=== PATIENT | male | born 1950 | race Caucasian/White ===

== ENCOUNTER 2016-02-27 12:53 | Emergency (ER) | payer OTHER ==
[~2016-02-27] VITALS: Ht 170.2 cm; Wt 66.0 kg
[~2016-02-27 12:53] MED LIST: AMLO5TAB96 PO; COLY4000S PO; CRANCAP5 OR; DOCU100T9 PO; DOXY100T OR; TERA2CAP3 PO
[2016-02-27 13:17] VITALS: BP 163/93; PULSE 88; RESP 18; TEMP 98.1; O2SAT 98
[2016-02-27] MEDS ORDERED: AMLO5TAB2 PO (13:47)
[2016-02-27] MEDS ORDERED: MELO-1 PO (13:47)
[2016-02-27] MEDS ORDERED: TERA2CAP3 PO (13:47)
[2016-02-27 13:55] VITALS: BP 140/70; PULSE 76; RESP 18; O2SAT 98
--- NOTE | 2016-02-27 13:59 | PD ---
HPI Chief Complaint: Hypertension Time Seen by Provider: 13:43 Travel History International Travel<30 days: No Contact w/Intl Traveler<30days: No Traveled to known affect area: No History of Present Illness HPI This 65-year-old male says he had an episode at home where he felt confused. He thinks it lasted for about half an hour. She had some tingling in his arms lasted for about a minute. He said his palms were sweaty. He went to [facility] and checked his blood pressure is elevated at 177/92. He is on Norvasc for hypertension. He has no history of heart disease or stroke. He is on medication for enlarged prostate. He smokes over a pack a day he does not complain of headaches. He has been coughing a lot recently PFSH Past Medical History Arthritis: Yes Hypertension: Yes Reproductive: Yes (ENLARGED PROSTATE) Influenza Vaccination: No Past Surgical History Surgical History: No Previous Surgery Social History Alcohol Use: No Tobacco Use: Yes (2 ppd) Substance Use: No Allergies-Medications (Allergen,Severity, Reaction): Coded Allergies: Effexor (Verified Allergy, Severe, PALPATATIONS, 02/27/16) Reported Meds & Prescriptions Reported Meds & Active Scripts Active Reported Tylenol-Codeine #3 (Acetaminophen-Codeine) 300-30 mg Tab 1-2 Tab PO Q6H PRN Meloxicam 15 Mg Tab 15 Mg PO DAILY Terazosin (Terazosin HCl) 2 Mg Cap 2 Mg PO HS Amlodipine (Amlodipine Besylate) 5 Mg Tab 5 Mg PO DAILY Review of Systems General / Constitutional: No: Fever, Chills Eyes: No: Diploplia HENT: No: Headaches, Vertigo, Lightheadedness Cardiovascular: No: Chest Pain or Discomfort Respiratory: Positive: Cough, No: Shortness of Breath Gastrointestinal: No: Vomiting, Diarrhea Genitourinary: No: Urgency Musculoskeletal: No: Myalgias Skin: No Rash Neurologic: Positive: Change in Mentation, No: Weakness, Dizziness, Focal Abnormalities Hematologic/Lymphatic: No: Easy Bruising Physical Exam Narrative GENERAL: Well-developed male SKIN: Warm and dry. HEAD: Atraumatic. Normocephalic. EYES: Pupils equal and round. No scleral icterus. No injection or drainage. ENT: No nasal bleeding or discharge. Mucous membranes pink and moist. NECK: Trachea midline. No JVD. CARDIOVASCULAR: Regular rate and rhythm. No murmur appreciated. RESPIRATORY: No accessory muscle use. Clear to auscultation. Breath sounds equal bilaterally. GASTROINTESTINAL: Abdomen soft, non-tender, nondistended. Hepatic and splenic margins not palpable. MUSCULOSKELETAL: No obvious deformities. No clubbing. No cyanosis. No edema. NEUROLOGICAL: Awake and alert. No obvious cranial nerve deficits. Motor grossly within normal limits. Normal speech. PSYCHIATRIC: Appropriate mood and affect; insight and judgment normal. Data Data Last Documented VS Vital Signs Date Time Temp Pulse Resp B/P Pulse Ox O2 Delivery O2 Flow Rate FiO2 02/27/16 13:55 76 18 140/70 98 Room Air 02/27/16 13:17 98.1 Orders Electrocardiogram (02/27/16 13:54) Complete Blood Count With Diff (02/27/16 13:54) Comprehensive Metabolic Panel (02/27/16 13:54) Lipase (02/27/16 13:54) Chest, Single Ap (02/27/16 13:54) Ct Brain W/O Iv Contrast(Rout) (02/27/16 13:54) Labs Laboratory Tests Test 02/27/16 13:50 White Blood Count 9.2 TH/MM3 Red Blood Count 4.69 MIL/MM3 Hemoglobin 14.9 GM/DL Hematocrit 43.2 % Mean Corpuscular Volume 92.0 FL Mean Corpuscular Hemoglobin 31.8 PG Mean Corpuscular Hemoglobin 34.5 % Concent Red Cell Distribution Width 11.4 % Platelet Count 234 TH/MM3 Mean Platelet Volume 8.3 FL Neutrophils (%) (Auto) 83.5 % Lymphocytes (%) (Auto) 11.2 % Monocytes (%) (Auto) 4.2 % Eosinophils (%) (Auto) 0.6 % Basophils (%) (Auto) 0.5 % Neutrophils # (Auto) 7.7 TH/MM3 Lymphocytes # (Auto) 1.0 TH/MM3 Monocytes # (Auto) 0.4 TH/MM3 Eosinophils # (Auto) 0.1 TH/MM3 Basophils # (Auto) 0.0 TH/MM3 CBC Comment DIFF FINAL Differential Comment Sodium Level 141 MEQ/L Potassium Level 4.3 MEQ/L Chloride Level 107 MEQ/L Carbon Dioxide Level 25.5 MEQ/L Anion Gap 9 MEQ/L Blood Urea Nitrogen 15 MG/DL Creatinine 0.99 MG/DL Estimat Glomerular Filtration 76 ML/MIN Rate Random Glucose 101 MG/DL Calcium Level 9.0 MG/DL Total Bilirubin 0.5 MG/DL Aspartate Amino Transf 16 U/L (AST/SGOT) Alanine Aminotransferase 36 U/L (ALT/SGPT) Alkaline Phosphatase 96 U/L Total Protein 8.1 GM/DL Albumin 3.9 GM/DL Lipase 84 U/L [facility] Medical Decision Making Medical Screen Exam Complete: Yes Emergency Medical Condition: Yes Medical Record Reviewed: Yes Differential Diagnosis Differential includes transient global amnesia, TIA, hypoglycemia Narrative Course Lab work is unremarkable. Chest x-ray is negative. CT scan is negative. Patient's symptoms have resolved completely on arrival to the emergency department. He had transient confusion for about half an hour. There was no focal weakness is no focal finding. Etiology has not been determined, this would be a very atypical TIA. Patient is stable now and will be released. I have recommended that he take aspirin daily Diagnosis Primary Impression: Transient confusion Disposition: 01 DISCHARGE HOME Condition: Stable Fernando Rolon MD Feb 27, 2016 13:59
[2016-02-27] MEDS ORDERED: TYLETAB34 PO (14:03)
[2016-02-27 14:11] LABS: AUTOMATED NEUTROPHIL # 7.7 TH/MM3 (1.8-7.7); BASOPHIL % 0.5 % (0.0-2.0); EOSINOPHIL # 0.1 TH/MM3 (0-0.4); EOSINOPHIL % 0.6 % (0.0-4.0); HEMATOCRIT 43.2 % (39.0-51.0); HEMO FLAGS DIFF FINAL; LYMPH % 11.2 % (9.0-44.0); MEAN CORPUSCULAR HEMOGLOBIN 31.8 PG (27.0-34.0); MEAN CORPUSCULAR HGB CONC 34.5 % (32.0-36.0); MONO % 4.2 % (0.0-8.0); NEUT % 83.5 % (16.0-70.0); PLATELET COUNT 234 TH/MM3 (150-450); RED BLOOD COUNT 4.69 MIL/MM3 (4.50-5.90); RED CELL DISTRIBUTION WIDTH 11.4 % (11.6-17.2); WHITE BLOOD COUNT 9.2 TH/MM3 (4.0-11.0)
[2016-02-27 14:20] LABS: CHLORIDE 107 MEQ/L (98-107); POTASSIUM 4.3 MEQ/L (3.5-5.1); SODIUM (NA) 141 MEQ/L (136-145)
--- NOTE | 2016-02-27 14:23 | RADHPO ---
EXAM DATE/TIME: 02/27/2016 14:13 [facility] COMPARISON: No previous studies available for comparison. INDICATIONS : Cough. Chest and arm numbness. MEDICAL HISTORY : None. SURGICAL HISTORY : None. ENCOUNTER: Initial ACUITY: 1 day PAIN SCORE: 0/10 LOCATION: Bilateral chest FINDINGS: A single view of the chest demonstrates the lungs to be symmetrically aerated without evidence of mas s, infiltrate or effusion. The cardiomediastinal contours are unremarkable. Osseous structures are intact. CONCLUSION: No acute disease. Morgan Peter MD on February 27, 2016 at 14:21 Board Certified Radiologist. This report was verified electronically.
[2016-02-27 14:24] LABS: ANION GAP 9 MEQ/L (5-15); BICARBONATE 25.5 MEQ/L (21.0-32.0)
[2016-02-27 14:25] LABS: BLOOD UREA NITROGEN 15 MG/DL (7-18)
[2016-02-27 14:27] LABS: ALT (GPT) 36 U/L (12-78); AST (GOT) 16 U/L (15-37)
[2016-02-27 14:28] LABS: GLOMERULAR FILTRATION RATE 76 ML/MIN (>89)
[2016-02-27 14:29] LABS: TOTAL BILIRUBIN ADULT 0.5 MG/DL (0.2-1.0)
[2016-02-27 14:30] LABS: ALKALINE PHOSPHATASE 96 U/L (45-117)
--- NOTE | 2016-02-27 14:45 | RADHPO ---
EXAM DATE/TIME: 02/27/2016 14:33 [facility] COMPARISON: No previous studies available for comparison. INDICATIONS : Bilateral upper extremity tingling today. RADIATION DOSE: 57.65 CTDIvol (mGy) MEDICAL HISTORY : Hypertension. SURGICAL HISTORY : None. ENCOUNTER: Initial ACUITY: 1 day PAIN SCALE: 0/10 LOCATION: cranial TECHNIQUE: Multiple contiguous axial images were obtained of the head. Using automated exposure control and adj ustment of the mA and/or kV according to patient size, radiation dose was kept as low as reasonably a chievable to obtain optimal diagnostic quality images. FINDINGS: CEREBRUM: The ventricles are normal for age. No evidence of midline shift, mass lesion, hemorrhage or acute in farction. No extra-axial fluid collections are seen. POSTERIOR FOSSA: The cerebellum and brainstem are intact. The 4th ventricle is midline. The cerebellopontine angle i s unremarkable. EXTRACRANIAL: The visualized portion of the orbits is intact. SKULL: The calvaria is intact. No evidence of skull fracture. CONCLUSION: Normal examination. Morgan Peter MD on February 27, 2016 at 14:43 Board Certified Radiologist. This report was verified electronically.
[2016-02-27] MEDS ORDERED: ASPIRIN 325 MG TAB PO ONE (15:15)
[2016-02-27 15:31] VITALS: BP 145/86
--- NOTE | 2016-02-28 17:45 | EKG ---
Date Performed: 02/27/2016 Time Performed: 13:17:02 PTAGE: 65 years EKG: Sinus rhythm with borderline 1st degree A-V block Poor R wave progression - probable normal variant Borderline EC G NO PREVIOUS TRACING DOCTOR: Faviola Gerardo Interpretating Date/Time 02/28/2016 17:44:03
== END 2016-02-27 15:33 | disposition home or self-care (01) ==
LOC: PHED 12:53
DX: R41.0 Disorientation, unspecified (principal); R40.4 Transient alteration of awareness; I10 Essential (primary) hypertension; N40.0 Benign prostatic hyperplasia without lower urinary tract symptoms; R05 Cough; R94.31 Abnormal electrocardiogram [ECG] [EKG]; F17.200 Nicotine dependence, unspecified, uncomplicated; Z79.899 Other long term (current) drug therapy; Z87.39 Personal history of other diseases of the musculoskeletal system and connective tissue
CPT/HCPCS: 70450; 71010; 80053; 83690; 85025; 93005

== ENCOUNTER 2016-11-14 10:35 | Emergency (ER) | payer SELFPAY ==
[~2016-11-14] VITALS: Ht 170.2 cm; Wt 70.0 kg
[~2016-11-14 10:35] MED LIST changes: +AMLO5TAB2 PO; -AMLO5TAB96 PO; -COLY4000S PO; -CRANCAP5 OR; -DOCU100T9 PO; -DOXY100T OR; +MELO-1 PO; +TYLETAB34 PO
[2016-11-14] MEDS ORDERED: IOHEXOL 350 MG/ML 10 ML VIAL (for RAD DIAG) IVCONTRAST ONE (10:36)
[2016-11-14 10:40] VITALS: BP 154/83; PULSE 85; RESP 16; TEMP 98.5; O2SAT 98
[2016-11-14 10:56] VITALS: BP 179/76; PULSE 83; RESP 18; O2SAT 96
[2016-11-14] MEDS ORDERED: SODIUM CHLOR 0.9% 1000 ML INJ 1,000 ML IV SCH (11:18)
[2016-11-14] MEDS ORDERED: HYDR25TA5 PO (11:26)
[2016-11-14 11:30] VITALS: O2SAT 95
[2016-11-14] MEDS ORDERED: SODIUM CHLORIDE 0.9% FLUSH 10 ML FLUSH IV FLUSH PRN (11:30)
[2016-11-14] MEDS ORDERED: PANTOPRAZOLE SODIUM 40 MG VIAL IVP ONE (11:30)
[2016-11-14] MEDS ORDERED: LIDOCAINE VISCOUS 2% SOLN 15 ML UDC PO ONE (11:30)
[2016-11-14] MEDS ORDERED: ALUMINUM/MAGNESIUM/SIMETH 30 ML CUP PO ONE (11:30)
--- NOTE | 2016-11-14 11:34 | PD ---
HPI Chief Complaint: Abdominal Pain Time Seen by Provider: 11:20 Travel History International Travel<30 days: No Contact w/Intl Traveler<30days: No Traveled to known affect area: No History of Present Illness HPI This is a 66-year-old male presents for evaluation of abdominal pain. He reports over the past year he has had left-sided abdominal pain, abdominal distention, belching. He reports that frequently in the middle the night he develops an acidic taste in his mouth. Symptoms have persisted/worsened which prompted evaluation today. He reports that he spoke to [facility] about this in the past over he has had no outside work up in regards to his symptoms. He denies any fevers, chills, chest pain or shortness of breath, dysuria, flank pain. He has had nausea but denies vomiting, denies diarrhea or constipation. Endorses tobacco use. No other complaints at this time. PFSH Past Medical History Arthritis: Yes Hypertension: Yes Reproductive: Yes (ENLARGED PROSTATE) Past Surgical History Surgical History: No Previous Surgery Social History Alcohol Use: No Tobacco Use: Yes (1 ppd) Substance Use: No Allergies-Medications (Allergen,Severity, Reaction): Coded Allergies: venlafaxine (Unverified Allergy, Severe, PALPATATIONS, 10/10/16) Reported Meds & Prescriptions Reported Meds & Active Scripts Active Reported Hydrochlorothiazide 25 Mg Tab 25 Mg PO DAILY Tylenol-Codeine #3 (Acetaminophen-Codeine) 300-30 mg Tab 1-2 Tab PO Q6H PRN Meloxicam 15 Mg Tab 15 Mg PO DAILY Terazosin (Terazosin HCl) 2 Mg Cap 2 Mg PO DAILY Amlodipine (Amlodipine Besylate) 5 Mg Tab 5 Mg PO DAILY Review of Systems Except as stated in HPI: all other systems reviewed are Neg Physical Exam Narrative GENERAL: This is a well-developed well-nourished male who is in no acute distress. SKIN: Warm and dry. HEAD: Atraumatic. Normocephalic. EYES: Pupils equal and round. No scleral icterus. No injection or drainage. ENT: No nasal bleeding or discharge. Mucous membranes pink and moist. NECK: Trachea midline. No JVD. CARDIOVASCULAR: Regular rate and rhythm. No murmur appreciated. RESPIRATORY: No accessory muscle use. Clear to auscultation. Breath sounds equal bilaterally. GASTROINTESTINAL: Abdomen soft, mild tenderness to palpation in the left upper and lower quadrants with no guarding. MUSCULOSKELETAL: No obvious deformities. No edema. NEUROLOGICAL: Awake and alert. No obvious cranial nerve deficits. Motor grossly within normal limits. Normal speech. PSYCHIATRIC: Appropriate mood and affect; insight and judgment normal. Data Data Last Documented VS Vital Signs Date Time Temp Pulse Resp B/P (MAP) Pulse Ox O2 Delivery O2 Flow Rate FiO2 11/14/16 12:18 56 18 125/95 (105) 97 Room Air 11/14/16 10:40 98.5 Orders Orders Complete Blood Count With Diff (11/14/16 11:18) Comprehensive Metabolic Panel (11/14/16 11:18) Lipase (11/14/16 11:18) Urinalysis - C+S If Indicated (11/14/16 11:18) Ct Abd/Pel W Iv Contrast(Rout) (11/14/16 11:18) Iv Access Insert/Monitor (11/14/16 11:18) Ecg Monitoring (11/14/16 11:18) Oximetry (11/14/16 11:18) Pantoprazole Inj (Protonix Inj) (11/14/16 11:30) Sodium Chlor 0.9% 1000 Ml Inj (Ns 1000 M (11/14/16 11:18) Sodium Chloride 0.9% Flush (Ns Flush) (11/14/16 11:30) Electrocardiogram (11/14/16 11:18) Al-Mag Hy-Si 40-40-4 Mg/Ml Liq (Mag-Al P (11/14/16 11:30) Lidocaine 2% Viscous (Xylocaine 2% Visco (11/14/16 11:30) Troponin I (11/14/16 11:18) Creatine Kinase (Cpk) (11/14/16 11:18) Iohexol 350 Inj (Omnipaque 350 Inj) (11/14/16 10:36) Labs Laboratory Tests Test 11/14/16 11:30 11/14/16 11:33 11/14/16 12:16 White Blood Count 6.4 TH/MM3 Red Blood Count 4.58 MIL/MM3 Hemoglobin 14.6 GM/DL Hematocrit 43.2 % Mean Corpuscular Volume 94.2 FL Mean Corpuscular Hemoglobin 31.8 PG Mean Corpuscular Hemoglobin Concent 33.8 % Red Cell Distribution Width 12.6 % Platelet Count 242 TH/MM3 Mean Platelet Volume 8.2 FL Neutrophils (%) (Auto) 74.2 % Lymphocytes (%) (Auto) 17.6 % Monocytes (%) (Auto) 5.9 % Eosinophils (%) (Auto) 1.2 % Basophils (%) (Auto) 1.1 % Neutrophils # (Auto) 4.7 TH/MM3 Lymphocytes # (Auto) 1.1 TH/MM3 Monocytes # (Auto) 0.4 TH/MM3 Eosinophils # (Auto) 0.1 TH/MM3 Basophils # (Auto) 0.1 TH/MM3 CBC Comment DIFF FINAL Differential Comment Blood Urea Nitrogen 15 MG/DL Creatinine 1.09 MG/DL Random Glucose 96 MG/DL Total Protein 8.0 GM/DL Albumin 3.7 GM/DL Calcium Level 8.7 MG/DL Alkaline Phosphatase 79 U/L Aspartate Amino Transf (AST/SGOT) 29 U/L Alanine Aminotransferase (ALT/SGPT) 21 U/L Total Bilirubin 0.6 MG/DL Sodium Level 137 MEQ/L Potassium Level 4.8 MEQ/L Chloride Level 106 MEQ/L Carbon Dioxide Level 25.4 MEQ/L Anion Gap 6 MEQ/L Estimat Glomerular Filtration Rate 68 ML/MIN Total Creatine Kinase 124 U/L Troponin I 0.02 NG/ML Lipase 85 U/L Urine Color YELLOW Urine Turbidity CLOUDY Urine pH 8.0 Urine Specific [place] 1.017 Urine Protein NEG mg/dL Urine Glucose (UA) NEG mg/dL Urine Ketones NEG mg/dL Urine Occult Blood NEG Urine Nitrite NEG Urine Bilirubin NEG Urine Urobilinogen LESS THAN 2.0 MG/DL Urine Leukocyte Esterase NEG Urine RBC 3 /hpf Urine Amorphous Sediment MANY Urine Mucus FEW /lpf Microscopic Urinalysis Comment CULT NOT INDICATED MDM Medical Decision Making Medical Screen Exam Complete: Yes Emergency Medical Condition: Yes Medical Record Reviewed: Yes Interpretation(s) EKG sinus rhythm, rate 66 CBC unremarkable CMP, CK, troponin with normal limits Urinalysis cloudy otherwise unremarkable. CT abdomen and pelvis with IV contrast Differential Diagnosis Gastritis, peptic ulcer disease, malignancy, pancreatitis, acute coronary syndrome, biliary colic, hepatitis Narrative Course 66-year-old male presents with one-year history of left-sided abdominal pain, belching, abdominal bloating, acidic taste in mouth when lying down at night. The patient will be placed on ECG monitoring and pulse oximetry. Plan is for twelve-lead EKG, basic lab work, CT abdomen and pelvis. The patient will be given GI cocktail and Protonix. The patient does feel improved after the administration of Protonix and GI cocktail. His lab work is unremarkable. CT abdomen and pelvis reveals: CONCLUSION: 1. A 1.6 cm probable granuloma laterally in the left lung base. 2. Asymmetric increased density in the right lobe of the prostate with increased density and prominence of the anterior lobe of the prostate as well. Recommend outpatient MRI of the prostate for further characterization and evaluation. 3. Small bilateral hydroceles. 4. Diverticular disease of the descending and sigmoid colon without diverticulitis. Discussed the findings with the patient and he was given a copy of his CT report to follow-up with his primary care physician for outpatient MRI of the prostate. Also discussed the possibility of obtaining an outpatient endoscopy to further evaluate his gastritis symptoms. He is stable for discharge. Procedures EKG Prior to Arrival: Yes Diagnosis Primary Impression: Gastritis Qualified Codes: K29.50 - Unspecified chronic gastritis without bleeding Additional Instructions: Medication as prescribed. Avoid tobacco products. Follow-up primary care physician to discuss outpatient MRI of the prostate as well as outpatient gastroenterology referral for endoscopy to further evaluate your symptoms. Return for any emergent medical conditions. Med/Other Pt SpecificInfo: Prescription(s) given Scripts Pantoprazole (Protonix) 40 Mg Tab 40 MG PO DAILY for Reflux, #30 TAB 0 Refills Prov: Bryan Vigil MD 11/14/16 Disposition: 01 DISCHARGE HOME Condition: Stable Maximilian Ríos Nov 14, 2016 11:34
[2016-11-14 11:36] VITALS: BP 147/75; PULSE 62; RESP 18; O2SAT 96
[2016-11-14 12:18] VITALS: BP 125/95; PULSE 56; RESP 18; O2SAT 97
[2016-11-14 12:31] LABS: AUTOMATED NEUTROPHIL # 4.7 TH/MM3 (1.8-7.7); BASOPHIL # 0.1 TH/MM3 (0-0.2); BASOPHIL % 1.1 % (0.0-2.0); EOSINOPHIL # 0.1 TH/MM3 (0-0.4); EOSINOPHIL % 1.2 % (0.0-4.0); HEMATOCRIT 43.2 % (39.0-51.0); HEMO FLAGS DIFF FINAL; LYMPH % 17.6 % (9.0-44.0); LYMPHOCYTE # 1.1 TH/MM3 (1.0-4.8); MEAN CELL VOLUME 94.2 FL (80.0-100.0); MEAN CORPUSCULAR HEMOGLOBIN 31.8 PG (27.0-34.0); MEAN CORPUSCULAR HGB CONC 33.8 % (32.0-36.0); MONO % 5.9 % (0.0-8.0); NEUT % 74.2 % (16.0-70.0); PLATELET COUNT 242 TH/MM3 (150-450); RED BLOOD COUNT 4.58 MIL/MM3 (4.50-5.90); RED CELL DISTRIBUTION WIDTH 12.6 % (11.6-17.2); WHITE BLOOD COUNT 6.4 TH/MM3 (4.0-11.0)
[2016-11-14 12:32] LABS: ALT (GPT) 21 U/L (12-78); ANION GAP 6 MEQ/L (5-15); AST (GOT) 29 U/L (15-37); BICARBONATE 25.4 MEQ/L (21.0-32.0); BLOOD UREA NITROGEN 15 MG/DL (7-18); CHLORIDE 106 MEQ/L (98-107); GLOMERULAR FILTRATION RATE 68 ML/MIN (>89); POTASSIUM 4.8 MEQ/L (3.5-5.1); SODIUM (NA) 137 MEQ/L (136-145)
[2016-11-14 12:37] LABS: ALKALINE PHOSPHATASE 79 U/L (45-117); CREATINE KINASE 124 U/L (39-308); TOTAL BILIRUBIN ADULT 0.6 MG/DL (0.2-1.0)
[2016-11-14 12:44] LABS: BLOOD, URINE NEG (NEG); COMMENT (UR) CULT NOT INDICATED; CULTURE IF INDICATED CULT NOT INDICATED; GLUCOSE,URINE NEG (NEG); KETONE, URINE NEG (NEG); MUCUS URINE FEW /lpf (OCC); NITRITE,URINE NEG (NEG); URINE COLOR YELLOW (YELLW/STRAW)
--- NOTE | 2016-11-14 13:55 | RADRPT ---
EXAM DATE/TIME: 11/14/2016 13:32 [facility] COMPARISON: CHEST SINGLE AP, February 27, 2016, 14:13. INDICATIONS : Abdomen pain for 1 week IV CONTRAST: 96 cc Omnipaque 350 (iohexol) IV ORAL CONTRAST: No oral contrast ingested. RADIATION DOSE: 5.21 CTDIvol (mGy) MEDICAL HISTORY : Hypertension. SURGICAL HISTORY : None. ENCOUNTER: Initial ACUITY: 1 week PAIN SCALE: 8/10 LOCATION: mid abdomen TECHNIQUE: Volumetric scanning of the abdomen and pelvis was performed. Using automated exposure control and ad justment of the mA and/or kV according to patient size, radiation dose was kept as low as reasonably achievable to obtain optimal diagnostic quality images. DICOM format image data is available electro nically for review and comparison. FINDINGS: LOWER LUNGS: 1.6 cm partially calcified nodule only in the left lung base is most characteristic of a granuloma. L christen bases are otherwise clear. LIVER: Homogeneous density without lesion. There is no dilation of the biliary tree. No calcified gallston es. SPLEEN: Normal size without lesion. PANCREAS: Within normal limits. KIDNEYS: Normal in size and shape. There is no mass, stone or hydronephrosis. ADRENAL GLANDS: Within normal limits. VASCULAR: There is no aortic aneurysm. BOWEL/MESENTERY: The stomach, small bowel, and colon demonstrate no acute abnormality. Diverticular disease of the kristen cending and sigmoid colon without diverticulitis. The appendix is radiographically normal ABDOMINAL WALL: Within normal limits. RETROPERITONEUM: There is no lymphadenopathy. BLADDER: No wall thickening or mass. REPRODUCTIVE: Asymmetric prominence in the right para midline anterior lobe of the prostate gland. The right prosta te also shows increased density relative to the left side. Small bilateral hydroceles. INGUINAL: There is no lymphadenopathy or hernia. MUSCULOSKELETAL: Chronic appearing compression fractures the central superior endplate of L2. Otherwise intact. CONCLUSION: 1. A 1.6 cm probable granuloma laterally in the left lung base. 2. Asymmetric increased density in the right lobe of the prostate with increased density and prominen ce of the anterior lobe of the prostate as well. Recommend outpatient MRI of the prostate for further characterization and evaluation. 3. Small bilateral hydroceles. 4. Diverticular disease of the descending and sigmoid colon without diverticulitis. Cornel Hahn MD on November 14, 2016 at 13:46 Board Certified Radiologist. This report was verified electronically.
[2016-11-14] MEDS ORDERED: PROT40TA PO (14:11)
--- NOTE | 2016-11-15 21:05 | EKG ---
Date Performed: 11/14/2016 Time Performed: 11:31:57 PTAGE: 66 years EKG: Sinus rhythm NORMAL ECG PREVIOUS TRACING : 02/27/2016 13.17 Compared to prior tracing no significant change DOCTOR: Suman Sanderson Interpretating Date/Time 11/15/2016 20:54:58
== END 2016-11-14 14:41 | disposition home or self-care (01) ==
LOC: NEPE 10:35
DX: K29.70 Gastritis, unspecified, without bleeding (principal); N43.3 Hydrocele, unspecified; M19.90 Unspecified osteoarthritis, unspecified site; I10 Essential (primary) hypertension; N40.0 Benign prostatic hyperplasia without lower urinary tract symptoms; F17.200 Nicotine dependence, unspecified, uncomplicated; Z88.8 Allergy status to other drugs, medicaments and biological substances; Z79.899 Other long term (current) drug therapy
CPT/HCPCS: 74177; 80053; 81001; 82550; 83690; 84484; 85025; 93005; 96374; 99285; C9113; J7030; Q9967

== ENCOUNTER 2017-07-04 21:40 | Emergency (ER) | payer MEDICARE, OTHER ==
[~2017-07-04] VITALS: Ht 170.2 cm; Wt 68.0 kg
[~2017-07-04 21:40] MED LIST changes: +HYDR25TA5 PO; -MELO-1 PO; +MELO15TA20 PO; +PROT40TA PO
[2017-07-04 22:03] VITALS: BP 164/82; PULSE 79; RESP 18; TEMP 98; O2SAT 96
[2017-07-04] MEDS ORDERED: predniSONE 50 MG TAB PO ONE (23:45)
[2017-07-04] MEDS ORDERED: diphenhydrAMINE HCL 50 MG/ML VIAL IV PUSH ONE (23:45)
[2017-07-04] MEDS ORDERED: PROCHLORPERAZINE INJ 10 MG/2 ML VIAL IV PUSH ONE (23:45)
[2017-07-04] MEDS ORDERED: KETOROLAC TROMETHAMINE 30 MG/ML (IVP) VIAL IV PUSH ONE (23:45)
--- NOTE | 2017-07-05 00:11 | RADRPT ---
EXAM DATE/TIME: 07/04/2017 23:58 [facility] COMPARISON: CHEST SINGLE AP, February 27, 2016, 14:13. INDICATIONS : Cough for one month. MEDICAL HISTORY : Smoker SURGICAL HISTORY : None. ENCOUNTER: Initial ACUITY: 1 month PAIN SCORE: 0/10 LOCATION: Bilateral chest FINDINGS: No infiltrate, effusion or pneumothorax demonstrated. Chronic right greater than left apical scarring again noted. There is an unchanged granuloma of the left base. Heart size stable, normal. CONCLUSION: No acute cardiopulmonary disease demonstrated. Jesu Hidalgo MD on July 05, 2017 at 0:09 Board Certified Radiologist. This report was verified electronically.
[2017-07-05 00:12] LABS: AUTOMATED NEUTROPHIL # 5.5 TH/MM3 (1.8-7.7); BASOPHIL # 0.1 TH/MM3 (0-0.2); BASOPHIL % 1.6 % (0.0-2.0); EOSINOPHIL # 0.2 TH/MM3 (0-0.4); HEMATOCRIT 43.2 % (39.0-51.0); LYMPHOCYTE # 2.1 TH/MM3 (1.0-4.8); MEAN CELL VOLUME 91.8 FL (80.0-100.0); MEAN CORPUSCULAR HEMOGLOBIN 31.8 PG (27.0-34.0); MEAN CORPUSCULAR HGB CONC 34.6 % (32.0-36.0); MONOCYTE # 0.6 TH/MM3 (0-0.9); NEUT % 64.4 % (16.0-70.0); PLATELET COUNT 261 TH/MM3 (150-450); WHITE BLOOD COUNT 8.5 TH/MM3 (4.0-11.0)
[2017-07-05 00:24] LABS: ALBUMIN 3.7 GM/DL (3.4-5.0); ALT (GPT) 30 U/L (12-78); AST (GOT) 18 U/L (15-37); BICARBONATE 28.2 MEQ/L (21.0-32.0); BLOOD UREA NITROGEN 19 MG/DL (7-18); CALCIUM 8.6 MG/DL (8.5-10.1); CHLORIDE 106 MEQ/L (98-107); CREATININE 1.07 MG/DL (0.60-1.30); GLOMERULAR FILTRATION RATE 69 ML/MIN (>89); GLUCOSE,RANDOM 90 MG/DL (74-106); SODIUM (NA) 140 MEQ/L (136-145)
[2017-07-05 00:26] LABS: ALKALINE PHOSPHATASE 91 U/L (45-117); TOTAL BILIRUBIN ADULT 0.3 MG/DL (0.2-1.0); TOTAL PROTEIN 7.8 GM/DL (6.4-8.2)
[2017-07-05] MEDS ORDERED: DOXY100C PO (01:31)
[2017-07-05] MEDS ORDERED: PRED50 PO (01:31)
--- NOTE | 2017-07-05 01:32 | PD ---
HPI Chief Complaint: Cold / Flu Symptoms Time Seen by Provider: 23:31 Travel History International Travel<30 days: No Contact w/Intl Traveler<30days: No Traveled to known affect area: No History of Present Illness HPI Patient is a 66 year old male who comes in complaining of headache and "clogged ears" with a cough for 1 month. He says he went to his doctor at the [facility] and was prescribed a coarse of Amoxicillin and Flonase without any relief. He says that the pain goes across his forehead. He denies fever or chills. He denies any weightloss or night sweats. He denies SOB or chest pain. He says he is getting very frustrated with his symptoms. Severity is mild to moderate. PFSH Past Medical History Arthritis: Yes Cardiovascular Problems: Yes (HTN) Hypertension: Yes Reproductive: Yes (ENLARGED PROSTATE) Tetanus Vaccination: < 5 Years Influenza Vaccination: Yes Past Surgical History Surgical History: No Previous Surgery Social History Alcohol Use: No Tobacco Use: Yes (1 ppd) Substance Use: No Allergies-Medications (Allergen,Severity, Reaction): Coded Allergies: venlafaxine (Unverified Allergy, Severe, PALPATATIONS, 10/10/16) Reported Meds & Prescriptions Reported Meds & Active Scripts Active Protonix (Pantoprazole Sodium) 40 Mg Tab 40 Mg PO DAILY Reported Hydrochlorothiazide 25 Mg Tab 25 Mg PO DAILY Tylenol-Codeine #3 (Acetaminophen-Codeine) 300-30 mg Tab 1-2 Tab PO Q6H PRN Meloxicam 15 Mg Tab 15 Mg PO DAILY Terazosin (Terazosin HCl) 2 Mg Cap 2 Mg PO DAILY Amlodipine (Amlodipine Besylate) 5 Mg Tab 5 Mg PO DAILY Review of Systems Except as stated in HPI: all other systems reviewed are Neg General / Constitutional: No: Fever, Chills Eyes: No: Blurred Vision HENT: Positive: Headaches, Congestion Cardiovascular: No: Chest Pain or Discomfort Respiratory: Positive: Cough, No: Shortness of Breath Gastrointestinal: No: Nausea, Vomiting Musculoskeletal: No: Myalgias, Edema Skin: No Rash, No Change in Pigmentation Neurologic: No: Weakness, Dizziness Physical Exam Narrative GENERAL: Awake and alert, in no acute distress. SKIN: Focused skin assessment warm/dry. HEAD: Atraumatic. Normocephalic. EYES: Pupils equal and round. No scleral icterus. EOMI. ENT: Mucous membranes pink and moist. Fluid present behind both TMs. NECK: Trachea midline. No JVD. CARDIOVASCULAR: Regular rate and rhythm. No murmur appreciated. RESPIRATORY: No accessory muscle use. Clear to auscultation. Breath sounds equal bilaterally. GASTROINTESTINAL: Abdomen soft, non-tender, nondistended. MUSCULOSKELETAL: No obvious deformities. No clubbing. No cyanosis. No edema. NEUROLOGICAL: Awake and alert. No obvious cranial nerve deficits. Motor grossly within normal limits. Normal speech. PSYCHIATRIC: Appropriate mood and affect; insight and judgment normal. Data Data Last Documented VS Vital Signs Date Time Temp Pulse Resp B/P (MAP) Pulse Ox O2 Delivery O2 Flow Rate FiO2 07/04/17 22:03 98.0 79 18 164/82 (109) 96 Orders Orders Iv Access Insert/Monitor (07/04/17 23:45) Complete Blood Count With Diff (07/04/17 23:45) Comprehensive Metabolic Panel (07/04/17 23:45) Chest, Pa & Lat (07/04/17 ) Diphenhydramine Inj (Benadryl Inj) (07/04/17 23:45) Prochlorperazine Inj (Compazine Inj) (07/04/17 23:45) Ketorolac Inj (Toradol Inj) (07/04/17 23:45) Prednisone (Deltasone) (07/04/17 23:45) Labs Laboratory Tests Test 07/04/17 23:50 White Blood Count 8.5 TH/MM3 Red Blood Count 4.70 MIL/MM3 Hemoglobin 15.0 GM/DL Hematocrit 43.2 % Mean Corpuscular Volume 91.8 FL Mean Corpuscular Hemoglobin 31.8 PG Mean Corpuscular Hemoglobin Concent 34.6 % Red Cell Distribution Width 13.0 % Platelet Count 261 TH/MM3 Mean Platelet Volume 8.0 FL Neutrophils (%) (Auto) 64.4 % Lymphocytes (%) (Auto) 25.0 % Monocytes (%) (Auto) 7.0 % Eosinophils (%) (Auto) 2.0 % Basophils (%) (Auto) 1.6 % Neutrophils # (Auto) 5.5 TH/MM3 Lymphocytes # (Auto) 2.1 TH/MM3 Monocytes # (Auto) 0.6 TH/MM3 Eosinophils # (Auto) 0.2 TH/MM3 Basophils # (Auto) 0.1 TH/MM3 CBC Comment DIFF FINAL Differential Comment Blood Urea Nitrogen 19 MG/DL Creatinine 1.07 MG/DL Random Glucose 90 MG/DL Total Protein 7.8 GM/DL Albumin 3.7 GM/DL Calcium Level 8.6 MG/DL Alkaline Phosphatase 91 U/L Aspartate Amino Transf (AST/SGOT) 18 U/L Alanine Aminotransferase (ALT/SGPT) 30 U/L Total Bilirubin 0.3 MG/DL Sodium Level 140 MEQ/L Potassium Level 4.2 MEQ/L Chloride Level 106 MEQ/L Carbon Dioxide Level 28.2 MEQ/L Anion Gap 6 MEQ/L Estimat Glomerular Filtration Rate 69 ML/MIN [facility] Medical Decision Making Medical Screen Exam Complete: Yes Emergency Medical Condition: Yes Medical Record Reviewed: Yes Differential Diagnosis sinusitis vs tension headache vs cluster headache Narrative Course Patient is a 66 year old male who comes in complaining of clogged ears and a headache. Exam shows fluid behind both TMs. IV established, labs sent. Labs show no acute abnormalities. Given Toradol, Benadryl, Compazine. CXR shows no acute abnormalities. Last 24 hours Impressions Chest X-Ray 07/04/17 0000 Signed Impressions: Service Date/Time: Tuesday, July 04, 2017 23:58 - CONCLUSION: No acute cardiopulmonary disease demonstrated. Jesu Hidalgo MD Given prednisone. will be discharged with prescriptions for Prednisone and doxycycline. Advised to take Coricidin for decongestant. Advised to follow up with his doctor and ENT. Advised to return to the ED as needed for any worsening symptoms. Diagnosis Primary Impression: Sinusitis Qualified Codes: J01.10 - Acute frontal sinusitis, unspecified Referrals: Fortunato Houser MD call for appointment Patient Instructions: General Instructions, Sinusitis (ED) Additional Instructions: Take all of your antibiotic. Take Coricidin for nasal decongestion. Take all of the prednisone. Follow up with your doctor. Return to the ED as needed for any worsening symptoms. Scripts Doxycycline Hyclate (Doxycycline Hyclate) 100 Mg Cap 100 MG PO BID for Infection, #20 CAP 0 Refills Prov: Lisa Serrato MD 07/05/17 Prednisone (Prednisone) 50 Mg Tab 50 MG PO DAILY for 4 Days, #4 TAB 0 Refills Prov: Lisa Serrato MD 07/05/17 Disposition: 01 DISCHARGE HOME Condition: Stable Lisa Serrato MD July 05, 2017 01:32
== END 2017-07-05 01:57 | disposition home or self-care (01) ==
LOC: NEPE 21:40
DX: J01.10 Acute frontal sinusitis, unspecified (principal); I10 Essential (primary) hypertension; F17.200 Nicotine dependence, unspecified, uncomplicated
CPT/HCPCS: 71046; 80053; 85025; 96374; 96375; 99284; J0780; J1200; J1885; J7512